=== PATIENT | male | born 1975 | race African-American/Black ===

== ENCOUNTER 2024-08-02 04:09 | Emergency (ER) | payer OTHER, SELFPAY ==
--- NOTE | ~2024-08-02 | CT_ITS ---
Non-contrast Head CT History: Headache Technique: Axial non-contrast imaging of the brain was performed. Dose reduction technique was used on this scan by utilizing automated exposure control and iterative reconstruction technique. The dose -length product (DLP) was 681.00 mGy-cm. Findings: There is no evidence of intracranial hemorrhage, mass lesion, or acute infarct. Brain par enchyma appears normal. The ventricles and subarachnoid spaces are normal in size. The calvarium ap pears normal. The visualized paranasal sinuses and mastoid air cells are clear. Impression: No significant abnormality seen. Reviewed, dictated and finalized at location . K AND WATCH HANDS DIPPER Impression: No significant abnormality seen.
--- NOTE | ~2024-08-02 | XR_ITS ---
Thoracic spine: Clinical Indication: Back pain AP and lateral views were performed. No fracture is seen. There is normal alignment of the vertebrae. The intervertebral disc spaces appe ar normal. Paravertebral soft tissues appear normal. Impression: No significant abnormalities noted. Reviewed, dictated and finalized at [facility]. ESTANT COORDINATOR Impression: No significant abnormalities noted.
--- NOTE | ~2024-08-02 | CT_ITS ---
Noncontrast CT scan of the cervical spine Technique: Multiple contiguous axial [address] images of the cervical spine were obtained and rec onstructed in 2D sagittal and coronal planes on the acquisition scanner. Dose reduction technique was used on this scan by utilizing automated exposure control, adjustment of the mA and/or kV according to patient size. The dose-length product (DLP) was 558.48 mGy-cm. Clinical History: Pain Findings: No fractures or dislocations. There are mild degenerative disc changes. There is left neur al foraminal narrowing at C4-C5. Probable mild bilateral neural foraminal narrowing at C5-C6. No prev ertebral soft tissue swelling. Impression: No fracture or subluxation of the cervical spine. Mild degenerative spondylosis, as above. Reviewed, dictated and finalized at [facility]. R EMPLOYMENT ASSOCIATE Impression: No fracture or subluxation of the cervical spine. Mild degenerative spondylosis, as above.
--- NOTE | ~2024-08-02 | XR_ITS ---
Lumbosacral Spine: AP and lateral views Clinical History: Pain Findings: The normal lordotic curve is maintained. The vertebral bodies and posterior elements are i ntact. There are mild degenerative disc changes and mild facet joint degenerative changes. The sacro iliac joints are normally outlined. Impression: Mild degenerative spondylosis. Reviewed, dictated and finalized at location . AND PRESIDENT Impression: Mild degenerative spondylosis.
--- NOTE | ~2024-08-02 | XR_ITS ---
Left Shoulder Technique: AP and scapular Y views were obtained. Clinical History: Pain Findings: No fracture or dislocation is seen. Osseous alignment is anatomic. The glenohumeral and acr omioclavicular joint spaces are preserved. Soft tissues are unremarkable. Impression: Unremarkable left shoulder radiographs. Reviewed, dictated and finalized at [facility]. METAL MIXER OPERATOR Impression: Unremarkable left shoulder radiographs.
[2024-08-02 04:17] VITALS: BP 150/87; PULSE 78; RESP 16; TEMP 36.6; O2SAT 98
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
== END 2024-08-02 07:00 | disposition home or self-care (01) ==
PROVIDERS: Emergency Provider Emergency Medicine; PCP Family Medicine
DX: S16.1XXA Strain of muscle, fascia and tendon at neck level, initial encounter (principal); S39.012A Strain of muscle, fascia and tendon of lower back, initial encounter; S29.012A Strain of muscle and tendon of back wall of thorax, initial encounter; S40.012A Contusion of left shoulder, initial encounter; M47.812 Spondylosis without myelopathy or radiculopathy, cervical region; M47.816 Spondylosis without myelopathy or radiculopathy, lumbar region; V63.5XXA Driver of heavy transport vehicle injured in collision with car, pick-up truck or van in traffic accident, initial encounter
CPT/HCPCS: 70450; 72070; 72100; 72125; 73030; 99284